=== PATIENT | female | born 1975 | race American Indian/Alaskan Native ===

== ENCOUNTER 2018-11-21 15:44 | Emergency (ER) | payer MEDICAID ==
[2018-11-21 16:17] VITALS: BMI 29.1
[2018-11-21 16:19] VITALS: BP 122/85; RESP 18; TEMP 98.3
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
--- NOTE | 2018-11-21 19:00 | US ---
PROCEDURE: Left lower extremity venous US HISTORY: Leg pain and swelling. Evaluate for DVT. PHYSICIAN(S): Jonas Angel MD. TECHNIQUE: Duplex sonography and color-flow Doppler with graded compression were used to evaluate the deep venous system of the left lower extremity. FINDINGS: The visualized deep venous system of the left lower extremity is sonographically normal and compressible. Normal wave forms and augmentation are seen. There is no sonographic evidence for deep venous thrombosis in the visualized segments of the left lower extremity. IMPRESSION: 1. No sonographic evidence for deep venous thrombosis in the visualized segments of the left lower extremity.
[2018-11-21 19:05] VITALS: PULSE 92; O2SAT 98
== END 2018-11-21 19:06 | disposition home or self-care (01) ==
LOC: MERGE 15:44 → ED 15:44
DX: M79.605 Pain in left leg (principal)